=== PATIENT | male | born 1960 | race Caucasian/White ===

== ENCOUNTER → 2020-07-23 | Outpatient (CLI) | payer BC ==
[~2020-07-23] MED LIST: MIRTAZAPINE15 M2 PO; OMEPRAZOLE 20 M20 M1 PO; OXYCODONE HCL 55 MG PO
== END ==
LOC: M.LAB 07:46
PROVIDERS: ATTEND Surgery
DX: Z01.812 Encounter for preprocedural laboratory examination (principal); Z20.828 Contact with and (suspected) exposure to other viral communicable diseases

== ENCOUNTER → 2020-07-26 | Day surgery (SDC) | payer BC ==
--- NOTE | 2020-07-30 18:07 | PATH ---
[address] [address] PATHOLOGY RPT PROCEDURE Name: ANEUDY RODRIGUEZ Room: [facility]#: [id number] Admission: 07/26/20 Date of : 64 Discharge: Report #: [id number] Path Case #: [id number] [facility] Accession Number: [id number] . 01 Material submitted: . gallbladder - GALLBLADDER AND CONTENTS . 01 Clinical history: . CHOLECYSTITIS . 02 Diagnosis: Gallbladder and contents: - Chronic cholecystitis, cholesterolosis and cholelithiasis. (SCHUYLER/db; 07/30/2020) LBQ 07/30/2020 1649 Local . 02 Electronically signed: . Ilan Freedman MD, Pathologist NPI- [id number] . 01 Gross description: . The specimen is received in formalin, labeled "Aneudy Rodriguez, gallbladder and contents". Received is a previously opened gallbladder measuring 6.3 x 3.0 x 1.6 cm in greatest dimensions displaying a blue-bal serosal surface. Opening the specimen reveals a velvety, bile-stained mucosa with moderate, diffuse cholesterolosis, and with a gallbladder wall thickness of 0.1 cm. A single yellow-flores, crystalline calculus is present, and no masses or lesions are noted grossly. Global Account Manager sections, to include the proximal margin, are submitted in cassette A1. (CAA; 07/29/2020) QAC/QAC 07/29/2020 1258 Local . 02 Pathologist provided ICD-10: K80.10, K82.8 . 02 CPT . 941260 Specimen Comment: A courtesy copy of this report has been sent to [phone], [phone] Specimen Comment: [phone] Specimen Comment: Report sent to / DR WAITE Performed at: [address] [facility] [address] [id number] MD Didier Roberto MD Phone: [phone] Performed at: [address] [facility] [address] [id number] [place] [address] PATHOLOGY RPT PROCEDURE Name: ANEUDY [facility]OD[facility]IGUEZ [id number] Ad[facility]: 07/26/20 Date of : 64 Discharge: Report #: [id number] Path Case #: [id number] MD Ilan Freedman MD Phone: [phone]
--- NOTE | 2020-08-09 10:32 | OP ---
[address] [address] OPERATIVE REPORT Name: GEGE ROCA Room: [facility]#: [id number] Admission: 07/26/20 Attend Phys: Raffaele Garcia DO Discharge: Date of : 64 Report #: [id number] THIS REPORT FOR: //name// cc: Meg Paul Stefany RNP ~ CC: Raffaele Paul COMPLETION SUPERVISOR DICTATED BY: Ernie Perez DO DATE OF SERVICE: 07/26/2020 PREOPERATIVE DIAGNOSIS: Cholecystitis. POSTOPERATIVE DIAGNOSIS: Chronic cholecystitis with cholelithiasis. PROCEDURE PERFORMED: Da Rafal robotic-assisted laparoscopic cholecystectomy with Firefly evaluation of the biliary system. SURGEON: Raffaele Garcia DO CO-SURGEON: Ernie Perez DO, PGY4 SPECIAL EVENTS COORDINATOR: ROSSY Mullen. ANESTHESIA: General. ESTIMATED BLOOD LOSS: 20 mL. SPECIMEN: Gallbladder. COMPLICATIONS: None. HISTORY OF PRESENT ILLNESS: The patient is a 60-year-old male who presented to the office with right upper quadrant abdominal pain. Workup revealed no gallstones; however, he had persistent right upper quadrant abdominal pain consistent with cholecystitis. We discussed laparoscopic cholecystectomy. Risks, benefits, and alternatives discussed at length and he agreed to proceed with surgery. DESCRIPTION OF PROCEDURE: After consent was obtained, the patient was taken to the operating room and placed in supine position. SCDs applied to bilateral lower extremities, safely belt was placed across the patient's waist. Two grams Ancef given for surgical prophylaxis. The patient underwent general endotracheal anesthesia without any complication. The patient was then prepped [address] [address] OPERATIVE REPORT Name: GEGE ROCA Room: [facility].#: [id number] Admission: 07/26/20 Attend Phys: Raffaele Garcia DO Discharge: Date of : 64 Report #: [id number] and draped in standard sterile fashion. A timeout was performed confirming patient and procedure. An 11 blade scalpel was used to make an incision just above the umbilicus. Electrocautery was used for hemostasis. Electrocautery was used to score the fascia and 2 Kochers were placed on either side of the fascia. Hemostat was used to bluntly enter the peritoneum. Two stitches of 0 Vicryl placed on either side of the fascia in a [id number] fashion. A 10 mm Anne trocar was placed into the abdomen. Camera was inserted in the abdomen and insufflation was initiated. Intra-abdominal contents were inspected. The liver could be seen. The gallbladder was not visualized underneath the liver. Three more 8 mm trocars were placed on the abdomen, 2 on the right side and 1 on the left side under direct visualization. At this point, we brought in [employer] robot and all ports were docked. Went over to the console and the liver was elevated. The gallbladder could be seen underneath. There were adhesions to the gallbladder, indicating chronic cholecystitis. The gallbladder was elevated and adhesions were taken down with hook electrocautery. Once the adhesions were freed from the gallbladder, attention was turned towards isolating the cystic artery and cystic duct. Beginning on the lateral aspect of the gallbladder, the fibrous adhesions to the structures were taken down carefully with hook electrocautery. Attention was then turned to the medial aspect of the gallbladder and careful dissection of the cystic artery was carried out with a combination of blunt dissection and cautery. Once the duct was completely isolated and could be seen going up into the gallbladder, attention was turned towards the cystic artery, which was found medially. This was carefully dissected out using electrocautery and blunt dissection. Both structures could be seen going up into the gallbladder. There was a structure just posterior to the duct, which appeared to be arterial in nature and was seen going up into the gallbladder. This was also carefully isolated. All three structures were clipped with Weck keila clips proximally and distally and all three structures were cauterized. The gallbladder was then cauterized off the bed of the liver. Right upper quadrant was irrigated and all fluid was suctioned out. There was no evidence of bile or bleeding. Hemostasis was completely ensured with electrocautery. At this point, pictures were taken. The gallbladder was placed in laparoscopic EndoCatch bag and the robot was undocked and removed from the patient's bedside. The gallbladder was removed from the supraumbilical trocar site and was found to have multiple gallstones. The supraumbilical fascia was closed with 2 stitches of 0 Vicryl in bchson-[id number]-[id number] fashion. All subcutaneous tissue was reapproximated with 3-0 Vicryl. All skin incisions reapproximated with 4-0 Monocryl. All needle, instrument, and sponge counts were correct x 2 at the end of the case. Skin was reapproximated with 4-0 Monocryl. Skin glue was [place] [address] OPERATIVE REPORT Name: GEGE ROCA Room: [facility]#: [id number] Admission: 07/26/20 Attend Phys: Raffaele Garcia DO Discharge: Date of : 64 Report #: [id number] patient was awoken from general anesthesia and transferred to PACU in stable condition. <ELECTRONICALLY SIGNED> By: Raffaele Garcia DO 08/09/20 1032 1100 [id number] Garcia DO /nt
== END | disposition home or self-care (01) ==
LOC: M.SUR
PROVIDERS: ATTEND Surgery
DX: K80.10 Calculus of gallbladder with chronic cholecystitis without obstruction (principal); K82.8 Other specified diseases of gallbladder; Z79.899 Other long term (current) drug therapy; Z85.46 Personal history of malignant neoplasm of prostate; Z98.890 Other specified postprocedural states; Z88.0 Allergy status to penicillin